=== PATIENT | male | born 1980 | race Caucasian/White ===

== ENCOUNTER 2018-02-04 10:10 | Emergency (ER) | payer SELFPAY ==
[~2018-02-04] VITALS: Ht 185.4 cm; Wt 81.8 kg
[2018-02-04 10:15] VITALS: TEMP 97.6
[2018-02-04] MEDS ORDERED: KEPPRA250 MG PO (10:15)
[2018-02-04] MEDS ORDERED: ANTIBIOTIC (10:30)
[2018-02-04] MEDS ORDERED: CEPHALEXIN500 M1 PO (11:03)
[2018-02-04] MEDS ORDERED: DOXYCYCLINE 10100 MG PO (11:03)
[2018-02-04 11:27] VITALS: BP 138/82; PULSE 92
== END 2018-02-04 11:27 | disposition home or self-care (01) ==
LOC: COL.ER 10:10
DX: S61.233A Puncture wound without foreign body of left middle finger without damage to nail, initial encounter (principal); L03.012 Cellulitis of left finger; G40.909 Epilepsy, unspecified, not intractable, without status epilepticus; Z23 Encounter for immunization; W45.8XXA Other foreign body or object entering through skin, initial encounter

== ENCOUNTER 2022-01-02 16:29 | Emergency (ER) | payer BC ==
[~2022-01-02] VITALS: Ht 185.4 cm; Wt 92.7 kg
[~2022-01-02 16:29] MED LIST: ANTIBIOTIC; CEPHALEXIN500 M1 PO; DOXYCYCLINE 10100 MG PO; KEPPRA250 MG PO
[2022-01-02 17:00] VITALS: BP 160/96; PULSE 80; TEMP 97.8
== END 2022-01-02 19:47 | disposition home or self-care (01) ==
LOC: COL.ER 16:29
DX: S61.411A Laceration without foreign body of right hand, initial encounter (principal); Z28.310 Unvaccinated for COVID-19; Z23 Encounter for immunization; W26.8XXA Contact with other sharp object(s), not elsewhere classified, initial encounter; Y92.59 Other trade areas as the place of occurrence of the external cause; Y99.0 Civilian activity done for income or pay